=== PATIENT | male | born 1965 | race American Indian/Alaskan Native ===

== ENCOUNTER → 2017-08-23 | Day surgery (SDC) | payer BC ==
[2017-08-20 13:48] VITALS: BMI 28.0
[~2017-08-23] MED LIST: Bacitracin OINT 15GM TOP ONE; Bupivacaine HCl 0.25% PF (30 ml) Inj ONE; Dexamethasone 4 mg/1 ml ONE; Etomidate 20 mg/10ml Inj IV ONE; HYDROmorphone 0.5 mg/0.5 ml ISec IVP PRN; Lactated Ringer's 1,000 ML IV ONE; Lactated Ringer's 1,000 ML IV SCH; MethylPREDNISolone Depo 40 mg/ml Inj ONE; Midazolam 2 MG/2 ML VIAL ONE; Neostigmine 1:1000 (1 mg/ml) Inj ONE; Oxycodone/Acetaminophen 5/325 mg Tab PO PRN; Propofol 10 mg/ml Inj (20 ML) ONE; Rocuronium 10 mg/ml (5 ml) ONE; Ropivacaine 0.5% 30ML IV ONE; Succinylcholine 200 mg/10 ml Inj IV ONE
--- NOTE | 2017-08-23 07:33 | CP.SDSHP ---
Same Day Surgery H & P - History Proposed Procedure: Right shoulder arthroscopy, rotator cuff repair, acromioplasty Pre-Op Diagnosis: Right shoulder supraspinatous/subscapularis tears, biceps tendinitis, AC joint arthrosis, impingement - Previous Medical/Surgical History Cardiac: Hypertension Previous Surgical History: Left shoulder arthroscopy. L wrist. R achilles repair - Allergies Allergies: Allergies amoxicillin Allergy (Verified 08/20/17 13:48) RASH - Physical Exam Mental Status: Alert & Oriented x3 Heart: WNL Lungs: WNL GI: WNL - {Optional Preform as Required} Ortho: Other (RUE: +radial pulse. sensation intact, painful limited ROM of shoulder) Other Pertinent Findings: MRI on chart. medical clearance/labs/CXR on chart, reviewed. [employer] patient report reviewed, xanax 01/24. Patient counseled on the risks of addiction, physical or psychological dependence, and overdose associated with opioid drugs and the danger of taking opioid drugs with alcohol and other central nervous system depressants, and cautioned patient on storage and disposal. - Impression Impression: 51M with progressive right shoulder pain found to have rotator cuff tear failed conservative mgmt elected for arthroscopy Pt. Evaluated Today:Candidate for Anesthesia & Procedure: Yes - Date & Time Date: 08/23/17 Time: 07:36 Short Stay Discharge - Short Stay Discharge Admitting Diagnosis/Reason for Visit: M25.511/ M25.611/ Disposition: HOME/ ROUTINE Referrals: Conner Dukes MD [Primary Care Provider] -
[2017-08-23] MEDS: Lidocaine 2% MPF (5 ml) Inj ONE ×2 (12:13→12:16)
[2017-08-23] MEDS: Lactated Ringer's 1,000 ML IV ONE ×2 (12:14→13:05)
--- NOTE | 2017-08-23 14:04 | PCM.ANESB1 ---
Interscalene Block - Brachial Plexus Date of Procedure: 08/23/17 Anesthesiologist: Jenise Pre-Procedure Diagnosis: Internal derangement right shoulder Post-Procedure Diagnosis: Same Procedure Performed: Interscalene Block of Brachial Plexus Right - Procedure Interscalene Block of Brachial Plexus: This procedure was explained to the patient that it is for post-operative pain management. Consent was obtained after a thorough discussion with the patient regarding the benefits and possible complications of local anesthetic block of the Brachial Plexus at the Interscalene area. The patient was brought to the Operating Room and standard monitors were applied. Time out was held with the circulating nurse to confirm the correct surgery and appropriate block. After applying Oxygen by nasal cannula and administering IV Sedation, the patient's head was gently rotated away from the __right____operative shoulder and the anterior scalene groove was carefully palpated. The ultrasound transducer was then applied to the skin in the transverse plane and the brachial plexus was visualized lateral to the carotid artery and in between the anterior and middle scalene muscles. After identification,the anterior lateral portion of the neck was prepped with Chloraprep and Lidocaine 1% was injected subcutaneously for topical analgesia. At this point, a # 22 gauge Stimuplex 2 inches insulated needle was inserted into the interscalene groove and directed in a caudal and midline direction. The needle was inserted lateral to the ultrasound transducer in-plane towards the brachial plexus in a [id number] direction. Needle advancement was performed carefully under direct ultrasound visualization. Nerve stimulator was used and twitched of the affected extremity including the hand brachialis muscles, biceps and the deltoid was obtained at a current of _0.4____MA. After repeated negative aspiration,__2___cc of__0.5% ropivacaine___, were injected and this was followed with _28____cc of __0.5___% ropivicaine . Under ultrasound guidance the local anesthetics were observed surrounding the roots of the brachial plexus. The needle was removed intact. The patient had stable vital signs, was conscious and in no apparent distress. The patient tolerated the interscalene block of the bracheal plexus well with stable vital signs and was prepared for subsequent surgery.
--- NOTE | 2017-08-23 14:04 | PCM.SURG1 ---
Surgeon's Initial Post Op Note - Surgeon's Notes Surgeon: Sue Hoop Cutter: MERVAT Goodman Type of Anesthesia: General Endo, Block Regional Anesthesia Administered By: DR Saldaña Pre-Operative Diagnosis: gr#3 rOTATOR CUFF TEAR r SHOULDER. tEAR GLENOID LABRUM WITH SEOPARARTION. aCROMIOCLAVICULAR JOINT ARTHROPATHY. SUBACROMIAL IMPINGMENT r SHOULDER. BURSITIS/ADHESIONS r SUBACROMIAL SPACE Operative Findings: as above Post-Operative Diagnosis: as above Operation Performed: Primary repair gr 3 Rotator cuff tear R shoulder. Primary repair glenoid labrum R shoulder. Partial distal claviculectomy(Right). partial acromioplasty R Shoulder. arthroscopic debridement R shoulder subacromial space- Partial bursectomy/; partial resection adhesions subacromial space Specimen/Specimens Removed: synovium/cartilage/bone Estimated Blood Loss: EBL {In ML}: 10 Blood Products Given: N/A Drains Used: No Drains Post-Op Condition: Fair Date of Surgery/Procedure: 08/23/17 Time of Surgery/Procedure: 12:15 (time in room /anaesthesia induction time 11:00 )
[2017-08-23 16:08] VITALS: O2SAT 95
[2017-08-23 16:18] VITALS: RESP 20
[2017-08-23 17:16] VITALS: BP 125/78; PULSE 98; TEMP 97.9
--- NOTE | 2017-08-23 17:34 | OP ---
PROCEDURE DATE: 08/23/2017 PREOPERATIVE DIAGNOSES: 1. Grade 3 tear of right rotator cuff involving the supraspinatus and the portion of the subscapularis tendon. 2. Tear of glenoid labrum extending anterior to posterior to the root of the biceps tendon. 3. Acromioclavicular joint arthropathy. 4. Subacromial impingement with a subacromial spur. 5. Adhesions in the subacromial space and severe bursitis. OPERATIVE FINDINGS: 1. Grade 3 tear of right rotator cuff involving the supraspinatus and the portion of the subscapularis tendon. 2. Tear of glenoid labrum extending anterior to posterior to the root of the biceps tendon. 3. Acromioclavicular joint arthropathy. 4. Subacromial impingement with a subacromial spur. 5. Adhesions in the subacromial space and severe bursitis. POSTOPERATIVE DIAGNOSES: 1. Grade 3 tear of right rotator cuff involving the supraspinatus and the portion of the subscapularis tendon. 2. Tear of glenoid labrum extending anterior to posterior to the root of the biceps tendon. 3. Acromioclavicular joint arthropathy. 4. Subacromial impingement with a subacromial spur. 5. Adhesions in the subacromial space and severe bursitis. TYPE OF ANESTHESIA: General endotracheal anesthesia and regional scalene block anesthesia by Lamonte Burden MD. SURGEON: Efe Rogers MD HOME ADVISOR: MAGDIEL Reed, certified registered nursing assistant editor. The operation could not have been performed without the assistance of nurse Zakiya. SPECIMENS REMOVED: Synovium, bursa, cartilage, and bone. BLOOD LOSS: Approximately 10 mL. No blood products given. No drains employed. POSTOPERATIVE CONDITION Stable/fair. TIME OF SURGERY: 12:15 incision time and 11:00 a.m. in the room. OPERATIVE INDICATIONS: David Chavez is a gentleman, who is well known to my practice, who is a retired [employer], who presents with severe right shoulder pain and restricted range of motion for approximately the last 1 year. The patient had a prior left shoulder arthroscopy, decompression, and repair in 2006 and did quite well. The patient now presents with pain and restricted range of motion of the right shoulder. The patient was refractory to conservative approach consisting of anti-inflammatory medication, activity modification, intra-articular injection therapy. The possibility of mechanical failure, infection, thromboembolic disease, stiffness secondary or tertiary surgery was discussed. The patient can no longer withstand the discomfort and wished the surgery to be accomplished. OPERATIVE PROCEDURE: After having obtained informed consent in the above fashion, after having identified side, site, and procedure, and a critical pause/time-out, after the satisfactory induction of the anesthetic, the patient identified as David Chavez, in the modified zamora chair position, using the Spider Shoulder Arthrex Positioner, the right upper extremity was prepped and free draped in the usual fashion for upper extremity surgery. Great care was taken and all bony prominences were well padded. The neck was centralized and padded. The upper extremity was placed in the positioner. After sterilely prepping and draping, after the satisfactory induction of the anesthetic by Dr. Burden, after having identified the side, site, and procedure and a critical pause/time-out, the right upper extremity was prepped and free draped in the usual fashion for upper extremity surgery. The topographic anatomy of the shoulder was marked, the distal aspect of the clavicle, lateral aspect of the acromion, and coracoid process. At a point approximately one thumbs breadth inferior and one thumbs breadth medial to the lateral aspect of the acromion, the joint was insufflated with 10 mL of 1% lidocaine without epinephrine using #11 blade followed by spreading followed by introduction of blunt trocar, the arthroscope was introduced. There was found to be a massive glenoid labral tear. Using a #18-gauge spinal needle followed by #11 blade, followed by spreading, followed by introduction of blunt trocar with the arthroscope posteriorly, a triangulation was accomplished anteriorly into the joint taking great care to staying lateral to the coracoid process. Using a #18-gauge spinal needle followed by #11 blade followed by spreading with the arthroscope posteriorly, the cannula was placed anteriorly. A careful and partial tricompartmental synovectomy was accomplished both to improve visualization and to ablate irritative tissue. Hemostasis was controlled with the arthroscopic wand. With the arthroscope posteriorly, there was found to be a tear and detachment of the glenoid labrum anteriorly extending from the biceps tendon anterior to the 3 o'clock position to posterior to the root of the biceps tendon. With the arthroscope posteriorly, the plane between the labrum and the glenoid was identified and that was developed and roughened using the rasp. Please refer to the video photographs. The inner free edge of the labral tear was debrided using the 4.0 [place] shaver and the arthroscopic wand. This having been accomplished, with the arthroscope posteriorly, and a posterolateral portal having been accomplished using #18-gauge spinal needle followed by #11 blade followed by spreading with the arthroscope posteriorly, the lasso was placed anteriorly and the plane between the labrum and the glenoid was developed. The nitinol wire was brought out posteriorly. It was loaded using the FiberTape brought out anteriorly. At this point in time, drilling was accomplished at the 02:30 position on the anterior aspect of the glenoid. The PushLock anchor was loaded, introduced into the joint and deployed. The repair was found to be acceptable. A second suture was placed in the 1 o'clock position. The nitinol wire was brought out posteriorly. The FiberTape was loaded, brought out anteriorly. The drilling was accomplished. The PushLock anchor was employed and it was impacted. This having been accomplished, we just trimmed the inner free edges smooth using the arthroscopic wand. Careful debridement and lysis of adhesions in the glenohumeral joint was accomplished using the arthroscopic shaver and the arthroscopic wand. This having been accomplished, the repair having been found to be excellent and extensive debridement of the glenohumeral joint was accomplished using the 3.4 mm Dyonics suction punch, the arthroscopic shaver, and the arthroscopic wand. At this point in time, the right upper extremity was placed in dependency, the operating table was rolled left. At this point in time, the arthroscope was placed in the subacromial space. There was a massive amount of adhesions and bursitis in the subacromial space. Using a #18-gauge spinal needle, followed by #11 blade, followed by spreading with the arthroscope posteriorly, the mid lateral portal was developed and there was found to be massive synovitis and adhesions and bursitis. Using a combination of the arthroscopic shaver and the arthroscopic wand, an extensive subacromial bursectomy and lysis of adhesions were accomplished. Bleeding points controlled with the ArthroCare wand. With the arthroscope posteriorly, extensive debridement of the subacromial space was accomplished, and partial bursectomy was accomplished. Adhesions were debrided. This having been accomplished with the arthroscope posteriorly, there was found to be a grade 3 tear at the anterior insertion of both the supraspinatus and a portion of the upper aspect of the subscapularis tendon. This having been accomplished, this was identified using a combination of again the arthroscopic wand, the point of origin at the greater tuberosity, and the critical zone of Codman was carefully debrided using the arthroscopic shaver and the arthroscopic wand. This having been accomplished, the cuff grasper was placed, the cuff was mobilized and found to be mobile and brought down to its origin at its insertion into the Codman's critical area. This having been accomplished, the Scorpion was deployed. The sutures were deployed and brought out laterally. This having been accomplished, a final portal was accomplished just off the lateral aspect of the acromion using number 18-gauge spinal needle followed by #1 blade followed by spreading. Using the arthroscopic wand, the subacromial space having been carefully debrided, careful excision of adhesions was accomplished as well as partial bursectomy. This having been accomplished, the Scorpion was brought out laterally. The sutures were brought out laterally after the deployment of the rotator cuff, one limb was brought out the superior portal. At this point in time, a second anchor was deployed and brought out superiorly as well. This having been accomplished, with the arm in abduction and internal rotation, the more posterior anchor was loaded, and it was brought one limb from the original FiberTape sutures and one limb from the secondary sutures so there is a crisscross of the FiberTape. This having been accomplished with the arm in abduction and internal rotation, using the SwiveLock, corkscrew anchor, the anchor was impacted and the SwiveLock was placed and this having been accomplished, it was trimmed. This having been accomplished, the more anterior was accomplished with the arm in abduction and rotation and the tensioning was accomplished by pulling on each suture. This was impacted and also using the peak anchor, this was impacted into the humeral head in the area of the greater tuberosity in the critical zone of Codman. The rotator cuff having thus been repaired successfully, the wound was thoroughly irrigated. At this point in time, the acromioclavicular joint was identified with the arthroscope placed laterally. The acromioclavicular joint capsule was identified and debrided. The arthroscope now was placed posterolaterally and using the arthroscopic bur, a careful partial acromioplasty was accomplished. This was a very tedious procedure and also using the 5.2 mm Ampexs suction punch, further lysis of adhesions and excision of the bursa were accomplished. Bleeding points were controlled with the wand. At this point in time, a partial distal claviculectomy was accomplished using the arthroscopic bur to the distal 1 cm of the clavicle to include the articular surface. A partial distal claviculectomy having been accomplished, a partial acromioplasty was accomplished as well with the arthroscopic bur. Debridement of the subacromial space continues, partial acromioplasty was completed. Bleeding points were controlled with the arthroscopic wand. Partial distal claviculectomy was accomplished as well. With the arm in abduction and internal rotation, closure of the portals was with interrupted Vicryl and nylon. The patient had received the scalene block, Reynaldo Cárdenas compression dressing, and shoulder abduction splint was applied. OPERATIVE PROCEDURES: 1. Arthroscopic rotator cuff repair, grade 3 rotator cuff tear. 2. Arthroscopic tear of glenoid labrum/slap lesion. 3. Arthroscopic partial distal claviculectomy. 4. Arthroscopic partial acromioplasty. 5. Arthroscopic debridement and lysis of adhesions and extensive debridement of the glenohumeral joint. 6. Arthroscopic debridement and lysis of adhesions in the subacromial space. Efe Rogers MD
== END | disposition home or self-care (01) ==
LOC: H.OPSURG 06:07
PROVIDERS: ATTEND Orthopaedic Surgery
DX: S46.011A Strain of muscle(s) and tendon(s) of the rotator cuff of right shoulder, initial encounter (principal); M25.611 Stiffness of right shoulder, not elsewhere classified; E78.5 Hyperlipidemia, unspecified; I10 Essential (primary) hypertension; Z86.73 Personal history of transient ischemic attack (TIA), and cerebral infarction without residual deficits; M19.011 Primary osteoarthritis, right shoulder; X58.XXXA Exposure to other specified factors, initial encounter
CPT/HCPCS: 29807; 29826; 29827; 88305; C1713; J0171; J0330; J1100; J2001; J2250; J2704; J2710; J3010; J7030; J7120